=== PATIENT | male | born 1975 ===

== ENCOUNTER 2017-10-11 09:17 | Emergency (ER) | payer MEDICAID ==
[2017-10-11 09:41] VITALS: O2SAT 98
--- NOTE | 2017-10-11 10:53 | C.PDOC ---
History Of Present Illness 42yo male, comes to ER stating he has been using "crystal meth" x 4 days and feels as if he is withdrawing. Patient denies any fever, chills, chest pain, shortness of breath, abdominal pain and offers no additional medical complaints. Patient also denies any suicidal or homicidal ideation. He is requesting detox from crystal meth. Time Seen by Provider: 10/11/17 09:48 Chief Complaint (Nursing): Substance Abuse History Per: Patient History/Exam Limitations: no limitations Current Symptoms Are (Timing): Still Present Associated Symptoms: denies: Suicidal Thoughts, Suicidal Plan Past Medical History Reviewed: Historical Data, Nursing Documentation, Vital Signs Vital Signs: Last Vital Signs Temp 98 F 10/11/17 09:39 Pulse 80 10/11/17 09:39 Resp 18 10/11/17 09:39 BP 126/83 10/11/17 09:39 Pulse Ox 98 10/11/17 10:53 - Medical History PMH: No Chronic Diseases Surgical History: No Surg Hx Family History: States: No Known Family Hx - Social History Hx Alcohol Use: Yes Hx Substance Use: Yes - Immunization History Hx Tetanus Toxoid Vaccination: No Hx Influenza Vaccination: No Hx Pneumococcal Vaccination: No Review Of Systems Except As Marked, All Systems Reviewed And Found Negative. Constitutional: Negative for: Fever, Chills Cardiovascular: Negative for: Chest Pain Respiratory: Negative for: Shortness of Breath Gastrointestinal: Negative for: Vomiting, Abdominal Pain Physical Exam - Physical Exam Appears: Non-toxic, No Acute Distress Skin: Warm, Dry Head: Atraumatic, Normacephalic Eye(s): bilateral: Normal Inspection Neck: Normal ROM, Supple Chest: Symmetrical Cardiovascular: Rhythm Regular Respiratory: Normal Breath Sounds Extremity: Normal ROM, No Pedal Edema Neurological/Psych: Oriented x3, Normal Speech, Normal Motor, Normal Sensation ED Course And Treatment O2 Sat by Pulse Oximetry: 98 (RA) Pulse Ox Interpretation: Normal Progress Note: Case discussed with crisis team, who state there is no detox program available for crystal meth. Crisis team will speak with patient and discuss outpatient management. [id number] Crisis team gave patient follow up information. Patient is stable for discharge home. Disposition - Disposition Disposition: HOME/ ROUTINE Disposition Time: 10:51 Condition: STABLE Additional Instructions: Follow up with PMD and Rehab as instructed. Return to ED if feel worse. Instructions: Drug Abuse and Drug Addiction (DC) Forms: [facility] (Vietnamese) - Clinical Impression Clinical Impression: Drug abuse - PA / CH[employer]AG[employer]KER / Resident Statement MD/DO has reviewed & agrees with the documentation as recorded. - Scribe Statement The provider has reviewed the documentation as recorded by the Thu Gandara Provider Attestation: All medical record entries made by the Thu were at my direction and personally dictated by me. I have reviewed the chart and agree that the record accurately reflects my personal performance of the history, physical exam, medical decision making, and the department course for this patient. I have also personally directed, reviewed, and agree with the discharge instructions and disposition.
[2017-10-11 11:03] VITALS: BP 104/79; PULSE 81; RESP 16; TEMP 97.7
== END 2017-10-11 11:03 | disposition home or self-care (01) ==
LOC: C.ER 09:17
DX: F19.10 Other psychoactive substance abuse, uncomplicated (principal)